=== PATIENT | male | born 1990 | race Hispanic/Latino ===

== ENCOUNTER 2022-06-24 14:26 | Observation (INO) | payer OTHER ==
[~2022-06-24] VITALS: Ht 170.2 cm; Wt 89.2 kg
[2022-06-24] VITALS (15 sets, daily range): BP systolic 118–149; BP diastolic 66–100
[2022-06-24] MEDS ORDERED: HYDROCODONE/ACETAMINOPHEN 5/325 MG TAB PO PRN (15:00)
[2022-06-24] MEDS ORDERED: BENZONATATE 100 MG CAPSULE PO PRN (15:00)
[2022-06-24] MEDS ORDERED: 0.9%NACL 1000ML 1,000 ML IV SCH (15:00)
[2022-06-24] MEDS ORDERED: ALPRAZOLAM 0.25 MG TABLET PO PRN (15:00)
[2022-06-24] MEDS ORDERED: ACETAMINOPHEN 325 MG TAB PO PRN ×3 (15:00→22:00)
[2022-06-24] MEDS: CEFAZOLIN SODIUM 2 GM VIAL IVPB SCH (15:00)
[2022-06-24] MEDS ORDERED: ONDANSETRON 4MG INJ IV PRN (15:00)
[2022-06-24] MEDS ORDERED: HYDROMORPHONE 0.5 MG SYG (0.5MG/0.5ML) IVP PRN (15:00)
[2022-06-24] MEDS ORDERED: KETOROLAC 15MG/ML VIAL (15MG/ML) IV PRN (15:00)
[2022-06-24] MEDS ORDERED: ATOR20TA65 PO (17:54)
[2022-06-24] MEDS ORDERED: DULO20 PO (17:54)
[2022-06-24] MEDS ORDERED: HYDR-3421 PO (17:54)
[2022-06-24] MEDS ORDERED: VORTIOXETINE PO (18:05)
[2022-06-24] MEDS ORDERED: ROCURONIUM 10MG/1ML SYR 10 MG/ML ML ONE (19:19)
[2022-06-24] MEDS ORDERED: FENTANYL CITRATE PF 50 MCG/1 ML 2ML VIAL ONE (19:19)
[2022-06-24] MEDS ORDERED: MIDAZOLAM HCL 1 MG/ML 2ML VIAL ONE (19:19)
[2022-06-24] MEDS ORDERED: PROPOFOL 10 MG/ML 20ML VIAL IV ONE (19:19)
[2022-06-24] MEDS ORDERED: BUPIVACAINE/PF 0.5% 30ML VIAL ONE (19:50)
[2022-06-24] MEDS ORDERED: MEPERIDINE-PF 25 MG/ML SYG ONE (20:49)
[2022-06-24] MEDS ORDERED: TRAMADOL HCL 50 MG TABLET PO PRN (22:00)
[2022-06-24] MEDS ORDERED: MORPHINE 2 MG SYG IVP PRN (22:00)
[2022-06-24] MEDS ORDERED: HYDROMORPHONE 1 MG INJ IVP STA (23:17)
[2022-06-24] MEDS: LACTATED RINGERS 1000ML 1,000 ML IV SCH (23:56)
[2022-06-25 00:10] VITALS: BP 137/77
[2022-06-25] MEDS: CEFAZOLIN SODIUM 2 GM VIAL IVPB SCH ×2 (00:12→06:42)
[2022-06-25 01:10] VITALS: BP 136/65
[2022-06-25 02:10] VITALS: BP 128/55
[2022-06-25 03:10] VITALS: BP 120/59
[2022-06-25 06:56] LABS: ALBUMIN 3.7 g/dL (3.5-5.0); POTASSIUM 4.3 mmol/L (3.5-5.1); TOTAL PROTEIN, SERUM 7.1 g/dL (6.0-8.3)
[2022-06-25 06:59] LABS: BASOPHILS % (AUTO) 0.2 % (0.0-5.0); EOSINOPHILS % (AUTO) 0.5 % (0.0-8.0); HEMATOCRIT 42.1 % (42-54); LYMPHOCYTES % (AUTO) 15.9 % (21.0-51.0); MEAN CORPUSCULAR HEMOGLOBIN 30.4 pg (27.0-33.0); MEAN CORPUSCULAR VOLUME 92.1 fL (79-99); MONOCYTES % (AUTO) 6.3 % (3.0-13.0); NEUTROPHILS % (AUTO) 76.8 % (40.0-77.0); PLATELET COUNT (AUTO) 293 K/uL (130-400); RED BLOOD CELL COUNT(AUTO) 4.57 MIL/uL (4.50-6.20); RED CELL DISTRIBUTION WIDTH 12.3 % (11.0-15.5)
[2022-06-25 08:00] VITALS: BP 138/89
[2022-06-25] MEDS: LACTATED RINGERS 1000ML 1,000 ML IV SCH (08:00)
[2022-06-25 12:00] VITALS: BP 135/85
== END 2022-06-25 13:15 | disposition home or self-care (01) ==
LOC: EDH 14:26 → DIRECT 14:27 → UNDOADMOB 14:35 → EDH 15:04 → 3AH 15:15 → DIRECT 15:15 → 3AH 06-25 03:50 → 3CH 06-25 03:50
PROVIDERS: ADMIT Internal Medicine Critical Care Medicine; ATTEND Internal Medicine Critical Care Medicine
DX: K35.80 Unspecified acute appendicitis (principal); E78.5 Hyperlipidemia, unspecified; F41.9 Anxiety disorder, unspecified; J45.909 Unspecified asthma, uncomplicated; Z79.899 Other long term (current) drug therapy; Z98.890 Other specified postprocedural states
CPT/HCPCS: 44970; 96375 ×2; 96365; 96366; 83735; 80053; 85025; 36415; G0378 ×20; J7030; J7120; A4344; J3010; J1170; J2250; J2704; J3490; J2175; A4649 ×4; J2270; J0690 ×2

== ENCOUNTER → 2022-06-24 | Outpatient (CLI) | payer OTHER ==
[~2022-06-24] MED LIST: ATOR20TA65 PO; BUPIVACAINE/PF 0.5% 30ML VIAL INJ ONE; CEFAZOLIN SODIUM 1 GM VIAL ONE; CEFAZOLIN SODIUM 2 GM VIAL IVPB ONE; DULO20 PO; FENTANYL CITRATE PF 50 MCG/1 ML 2ML VIAL ONE; GLYCOPYRROLATE 1 MG/5 ML SYRINGE ONE; HYDR-3421 PO; NEOSTIGMINE 5MG/5ML SYR IV ONE; ONDANSETRON 4MG INJ ONE; VORTIOXETINE PO
== END | disposition home or self-care (01) ==
LOC: EEVIPCON 11:13 → RAH 11:13
PROVIDERS: ATTEND Family Medicine
DX: R10.31 Right lower quadrant pain (principal); K35.80 Unspecified acute appendicitis
CPT/HCPCS: 74176; J7030; J7120; A4344; J3010; J0690 ×2; J3490 ×2; J2710; J2405; A4649 ×4